=== PATIENT | male | born 1955 | race African-American/Black ===

== ENCOUNTER 2023-12-30 13:01 | Inpatient (IN) | payer MEDICARE, OTHER ==
[~2023-12-30] VITALS: Ht 180.3 cm; Wt 115.7 kg
[2023-12-30] MEDS: IV NS 0.9% 500 ML BAG IV ONE (13:30)
[2023-12-30 14:15] LABS: BASOPHILS % (AUTO) 0.8 % (0.0-2.0); EOSINOPHILS # (AUTO) 0.1 K/uL (0.0-0.7); EOSINOPHILS % (AUTO) 1.9 % (0.0-6.0); HEMATOCRIT 46 % (39-51); HEMOGLOBIN 14.9 g/dL (13.5-17.5); LYMPHOCYTES # (AUTO) 1.2 K/uL (0.8-4.8); LYMPHOCYTES % (AUTO) 27.1 % (20.0-44.0); MEAN CORPUSCULAR HEMOGLOBIN 26 PG (26.0-33.0); MEAN CORPUSCULAR HGB CONC 33 g/dl (31.0-36.0); MEAN CORPUSCULAR VOLUME 80 fL (80-96); MONOCYTES # (AUTO) 0.3 K/uL (0.1-1.30); MONOCYTES % (AUTO) 6.3 % (2.0-12.0); NEUTROPHILS # (AUTO) 2.9 K/uL (1.8-8.9); NEUTROPHILS % (AUTO) 63.9 % (43.0-81.0); PLATELET COUNT (AUTO) 225 K/uL (150-450); RED BLOOD CELL COUNT(AUTO) 5.74 MIL/uL (4.5-6.0); RED CELL DISTRIBUTION WIDTH 17.5 % (11.5-15.0); WHITE BLOOD COUNT (AUTO) 4.6 K/uL (4.3-11.0)
[2023-12-30 14:23] LABS: APPEARANCE,URINE Clear (CLEAR); BILIRUBIN,URINE Negative (NEGATIVE); BLOOD, URINE Trace-intact Ery/uL (NEGATIVE); COLOR,URINE YELLOW (YELLOW); KETONES,URINE Negative (NEGATIVE); LEUKOCYTE ESTERASE ,URINE Negative (NEGATIVE); NITRITE, URINE Negative (NEGATIVE); PROTEIN,URINE Negative (NEGATIVE); UGLUCOSE Negative (NEGATIVE); UROBILINOGEN,URINE 0.2 EU/dL (0.2)
[2023-12-30 14:33] LABS: ADD URINE CULTURE NO; BACTERIA,URINE None seen /HPF (None Seen); RBC,URINE 0-2 /HPF (0-2); SQUAMOUS EPITHELIAL CELL,UR None Seen /HPF (None Seen); WBC,URINE NONE SEEN /HPF (0-3)
[2023-12-30] MEDS ORDERED: BENZ1TAB7 PO (15:06)
[2023-12-30] MEDS ORDERED: ATOR40TA PO (15:06)
[2023-12-30] MEDS ORDERED: MAGN400O6 PO (15:06)
[2023-12-30] MEDS ORDERED: ACET325T53 PO (15:06)
[2023-12-30] MEDS ORDERED: OLAN15TA6 PO (15:06)
[2023-12-30] MEDS ORDERED: POLY15DR31 EACHEYE (15:06)
[2023-12-30] MEDS ORDERED: OLAN10TA6 PO (15:06)
[2023-12-30 15:13] LABS: CALCIUM, SERUM 8.9 mg/dL (8.5-10.1); CARBON DIOXIDE 25 mmol/L (21-32); CHLORIDE 101 mmol/L (98-107); CREATININE 0.8 mg/dL (0.6-1.3); GLUCOSE 127 mg/dL (74-106); POTASSIUM 3.7 mmol/L (3.5-5.1); SODIUM SERUM 136 mmol/L (136-145); UREA NITROGEN, BLOOD 7 mg/dL (7-18)
[2023-12-30 15:21] LABS: ALANINE AMINOTRANSFERASE 24 U/L (12-78); ALBUMIN 3.4 g/dL (3.4-5.0); ALKALINE PHOSPHATASE 116 U/L (46-116); ASPARTATE AMINOTRANSFERASE 30 U/L (15-37); BILIRUBIN,DIRECT 0.2 mg/dL (0.0-0.2); BILIRUBIN,TOTAL 0.7 mg/dL (0.2-1.0); TOTAL PROTEIN, SERUM 7.1 g/dL (6.4-8.2)
[2023-12-30] MEDS ORDERED: MAGNESIUM HYDROXIDE 30 ML UDC PO PRN ×3 (16:30→19:19)
[2023-12-30] MEDS ORDERED: Z GUARD REMEDY 4 OZ OINT TP PRN (16:30)
[2023-12-30] MEDS ORDERED: POLYVINYL ALCOHOL 15 ML BOTTLE EACHEYE PRN (16:30)
[2023-12-30] MEDS ORDERED: ONDANSETRON HCL/PF 4 MG/2 ML VIAL IVP PRN (16:30)
[2023-12-30] MEDS ORDERED: ACETAMINOPHEN 325 MG TABLET PO PRN ×2 (16:30)
[2023-12-30] MEDS ORDERED: MAG HYDROX/AL HYDROX/SIMETH 30 ML UDC PO PRN (16:30)
[2023-12-30 20:00] VITALS: BP 123/81; TEMP 98.6; O2SAT 100
[2023-12-30] MEDS: IV D5/0.45 NACL 1,000 ML IV PRN (22:21)
[2023-12-30] MEDS: ATORVASTATIN 40 MG TABLET PO SCH (22:33)
[2023-12-30] MEDS: OLANZAPINE ZYDIS 5 MG TAB.RAPDIS PO SCH (22:33)
[2023-12-31 06:44] LABS: BASOPHILS % (AUTO) 0.6 % (0.0-2.0); EOSINOPHILS # (AUTO) 0.1 K/uL (0.0-0.7); EOSINOPHILS % (AUTO) 1.8 % (0.0-6.0); HEMATOCRIT 46 % (39-51); HEMOGLOBIN 15.2 g/dL (13.5-17.5); LYMPHOCYTES # (AUTO) 1.3 K/uL (0.8-4.8); LYMPHOCYTES % (AUTO) 29.6 % (20.0-44.0); MEAN CORPUSCULAR HEMOGLOBIN 27 PG (26.0-33.0); MEAN CORPUSCULAR HGB CONC 33 g/dl (31.0-36.0); MEAN CORPUSCULAR VOLUME 81 fL (80-96); MONOCYTES # (AUTO) 0.4 K/uL (0.1-1.30); MONOCYTES % (AUTO) 7.8 % (2.0-12.0); NEUTROPHILS # (AUTO) 2.7 K/uL (1.8-8.9); NEUTROPHILS % (AUTO) 60.2 % (43.0-81.0); PLATELET COUNT (AUTO) 200 K/uL (150-450); RED BLOOD CELL COUNT(AUTO) 5.68 MIL/uL (4.5-6.0); RED CELL DISTRIBUTION WIDTH 17.7 % (11.5-15.0); WHITE BLOOD COUNT (AUTO) 4.6 K/uL (4.3-11.0)
[2023-12-31 07:11] LABS: ALBUMIN 3.2 g/dL (3.4-5.0); BILIRUBIN,TOTAL 0.9 mg/dL (0.2-1.0); CALCIUM, SERUM 8.8 mg/dL (8.5-10.1); CREATININE 0.8 mg/dL (0.6-1.3); MAGNESIUM 2.1 mg/dL (1.8-2.4); PHOSPHORUS 3.4 mg/dL (2.5-4.9); POTASSIUM 4.1 mmol/L (3.5-5.1); TOTAL PROTEIN, SERUM 6.9 g/dL (6.4-8.2)
[2023-12-31 07:30] VITALS: BP 140/100; TEMP 98.6; O2SAT 99
[2023-12-31] MEDS: OLANZAPINE ZYDIS 5 MG TAB.RAPDIS PO SCH (08:32)
[2023-12-31] MEDS: BENZTROPINE MESYLATE (1 MG) 1 MG TABLET PO SCH (08:33)
[2023-12-31 16:00] VITALS: BP 136/87; TEMP 98.1; O2SAT 99
[2023-12-31 20:00] VITALS: BP 158/78; TEMP 98.1; O2SAT 98
[2024-01-01 08:11] VITALS: BP 133/86; TEMP 98.2; O2SAT 100
[2024-01-01 15:48] VITALS: BP 138/74; TEMP 98.3; O2SAT 100
[2024-01-01 20:00] VITALS: BP 139/98; TEMP 98.1; O2SAT 99
[2024-01-02 08:32] VITALS: BP 125/85; TEMP 98.4; O2SAT 100
== END 2024-01-02 17:24 | DRG 641 ==
LOC: ER 13:05 → TELE 19:16 → MED 12-31 00:25
PROVIDERS: ADMIT Internal Medicine; ATTEND Internal Medicine
DX: R62.7 Adult failure to thrive (principal); F41.9 Anxiety disorder, unspecified; F32.A Depression, unspecified; E78.5 Hyperlipidemia, unspecified; F25.9 Schizoaffective disorder, unspecified; Z68.35 Body mass index [BMI] 35.0-35.9, adult; G62.9 Polyneuropathy, unspecified; R53.1 Weakness; R52 Pain, unspecified
CPT/HCPCS: 36415; 71045-TC; 80048-TC; 80053-TC; 80076-TC; 81001; 82962-TC; 83735-TC; 84100-TC; 84443-TC; 84484-TC; 85025-TC; 87081-TC; A4223; G0378; J3490; J7030

== ENCOUNTER 2024-07-11 16:14 | Inpatient (IN) | payer MEDICARE, OTHER ==
[~2024-07-11] VITALS: Ht 188 cm; Wt 113.4 kg
[~2024-07-11 16:14] MED LIST: ACET325T53 PO; ATOR40TA PO; BENZ1TAB7 PO; MAGN400O6 PO; OLAN10TA6 PO; OLAN15TA6 PO; POLY15DR31 EACHEYE
[2024-07-11] MEDS ORDERED: RISP3TAB5 PO (16:51)
[2024-07-11 17:08] LABS: BASOPHILS # (AUTO) 0.1 K/uL (0.0-0.2); BASOPHILS % (AUTO) 1.3 % (0.0-2.0); EOSINOPHILS # (AUTO) 0.1 K/uL (0.0-0.7); EOSINOPHILS % (AUTO) 1.8 % (0.0-6.0); HEMATOCRIT 46 % (39-51); HEMOGLOBIN 14.9 g/dL (13.5-17.5); LYMPHOCYTES # (AUTO) 1.5 K/uL (0.8-4.8); LYMPHOCYTES % (AUTO) 34.5 % (20.0-44.0); MEAN CORPUSCULAR HEMOGLOBIN 27 PG (26.0-33.0); MEAN CORPUSCULAR HGB CONC 33 g/dl (31.0-36.0); MEAN CORPUSCULAR VOLUME 81 fL (80-96); MONOCYTES # (AUTO) 0.4 K/uL (0.1-1.30); MONOCYTES % (AUTO) 9.4 % (2.0-12.0); NEUTROPHILS # (AUTO) 2.2 K/uL (1.8-8.9); PLATELET COUNT (AUTO) 217 K/uL (150-450); RED BLOOD CELL COUNT(AUTO) 5.64 MIL/uL (4.5-6.0); RED CELL DISTRIBUTION WIDTH 15.7 % (11.5-15.0); WHITE BLOOD COUNT (AUTO) 4.2 K/uL (4.3-11.0)
[2024-07-11 17:18] LABS: CALCIUM, SERUM 8.8 mg/dL (8.5-10.1); CARBON DIOXIDE 27 mmol/L (21-32); CHLORIDE 104 mmol/L (98-107); CREATININE 0.8 mg/dL (0.6-1.3); GLUCOSE 92 mg/dL (74-106); POTASSIUM 4.1 mmol/L (3.5-5.1); SODIUM SERUM 137 mmol/L (136-145); UREA NITROGEN, BLOOD 7 mg/dL (7-18)
[2024-07-11 18:20] VITALS: BP 130/80; TEMP 97.7
[2024-07-11] MEDS ORDERED: MAGNESIUM HYDROXIDE 30 ML UDC PO PRN (19:30)
[2024-07-11] MEDS ORDERED: MAG HYDROX/AL HYDROX/SIMETH 30 ML UDC PO PRN (19:30)
[2024-07-11] MEDS ORDERED: ONDANSETRON HCL/PF 4 MG/2 ML VIAL IVP PRN (19:30)
[2024-07-11] MEDS ORDERED: ACETAMINOPHEN 325 MG TABLET PO PRN (19:30)
[2024-07-11] MEDS ORDERED: Z GUARD REMEDY 4 OZ OINT TP PRN (19:30)
[2024-07-11 20:25] VITALS: BP 118/87; TEMP 97.7; O2SAT 99
[2024-07-11] MEDS: ENOXAPARIN SODIUM 40 MG/0.4 ML DISP.SYRIN SQ SCH (21:34)
[2024-07-11] MEDS: ZOLPIDEM TARTRATE 5 MG TABLET PO PRN (23:21)
[2024-07-12 06:39] LABS: BASOPHILS % (AUTO) 0.9 % (0.0-2.0); EOSINOPHILS % (AUTO) 1.3 % (0.0-6.0); HEMATOCRIT 45 % (39-51); HEMOGLOBIN 14.9 g/dL (13.5-17.5); LYMPHOCYTES # (AUTO) 1.2 K/uL (0.8-4.8); LYMPHOCYTES % (AUTO) 31.6 % (20.0-44.0); MEAN CORPUSCULAR HEMOGLOBIN 27 PG (26.0-33.0); MEAN CORPUSCULAR HGB CONC 33 g/dl (31.0-36.0); MEAN CORPUSCULAR VOLUME 82 fL (80-96); MONOCYTES # (AUTO) 0.4 K/uL (0.1-1.30); MONOCYTES % (AUTO) 9.7 % (2.0-12.0); NEUTROPHILS # (AUTO) 2.1 K/uL (1.8-8.9); NEUTROPHILS % (AUTO) 56.5 % (43.0-81.0); PLATELET COUNT (AUTO) 202 K/uL (150-450); RED BLOOD CELL COUNT(AUTO) 5.55 MIL/uL (4.5-6.0); RED CELL DISTRIBUTION WIDTH 15.9 % (11.5-15.0); WHITE BLOOD COUNT (AUTO) 3.7 K/uL (4.3-11.0)
[2024-07-12 07:10] LABS: CALCIUM, SERUM 8.4 mg/dL (8.5-10.1); CREATININE 0.8 mg/dL (0.6-1.3); PHOSPHORUS 3.6 mg/dL (2.5-4.9); POTASSIUM 4.3 mmol/L (3.5-5.1)
[2024-07-12 07:30] VITALS: BP 134/96; TEMP 97.9; O2SAT 97
[2024-07-12 07:30] LABS: THYROID STIMULATING HORMONE 1.21 uIU/mL (0.358-3.74)
[2024-07-12] MEDS: PANTOPRAZOLE 40 MG TABLET.DR PO SCH (08:35)
[2024-07-12] MEDS ORDERED: POLYVINYL ALCOHOL 15 ML BOTTLE EACHEYE PRN (12:00)
[2024-07-12] MEDS ORDERED: MAGNESIUM HYDROXIDE 30 ML UDC PO PRN (12:00)
[2024-07-12] MEDS: risperiDONE 1 MG TABLET PO SCH (12:10)
[2024-07-12 16:00] VITALS: BP 117/76; TEMP 97.7; O2SAT 99
[2024-07-12 20:00] VITALS: BP 104/67; TEMP 98.2; O2SAT 96
[2024-07-12] MEDS: ATORVASTATIN 40 MG TABLET PO SCH (22:11)
[2024-07-13 08:00] VITALS: BP 134/83; TEMP 98.2; O2SAT 98
[2024-07-13] MEDS: BENZTROPINE MESYLATE (1 MG) 1 MG TABLET PO SCH (08:49)
[2024-07-13 16:00] VITALS: BP 116/70; TEMP 98.1; O2SAT 96
[2024-07-13 20:00] VITALS: BP_SYST 131; BP_DIAS 74; BP_DIAS 84; TEMP 98.1; O2SAT 99
[2024-07-14 08:00] VITALS: BP 120/75; TEMP 98.6; O2SAT 99
== END 2024-07-14 16:55 | DRG 641 ==
LOC: ER 16:21 → MED 17:37
PROVIDERS: ADMIT Student in an Organized Health Care Education/Training Program; ATTEND Internal Medicine
DX: R62.7 Adult failure to thrive (principal); E87.1 Hypo-osmolality and hyponatremia; F41.9 Anxiety disorder, unspecified; F32.A Depression, unspecified; F25.9 Schizoaffective disorder, unspecified; Z68.32 Body mass index [BMI] 32.0-32.9, adult; E78.5 Hyperlipidemia, unspecified; E86.1 Hypovolemia; G89.29 Other chronic pain
CPT/HCPCS: 36415; 71045-TC; 80048-TC; 83735-TC; 84100-TC; 84443-TC; 84484-TC; 85025-TC; G0378; J1650

== ENCOUNTER 2025-02-15 19:50 | Inpatient (IN) | payer MEDICARE, OTHER ==
[~2025-02-15] VITALS: Ht 182.9 cm; Wt 79.4 kg
[~2025-02-15 19:50] MED LIST changes: -OLAN10TA6 PO; -OLAN15TA6 PO; +RISP3TAB5 PO
[2025-02-15 20:33] LABS: BASOPHILS % (AUTO) 0.6 % (0.0-2.0); EOSINOPHILS # (AUTO) 0.1 K/uL (0.0-0.7); EOSINOPHILS % (AUTO) 2.5 % (0.0-6.0); HEMATOCRIT 42 % (39-51); LYMPHOCYTES # (AUTO) 1.7 K/uL (0.8-4.8); MEAN CORPUSCULAR HEMOGLOBIN 27 PG (26.0-33.0); MEAN CORPUSCULAR HGB CONC 33 g/dl (31.0-36.0); MEAN CORPUSCULAR VOLUME 82 fL (80-96); MONOCYTES # (AUTO) 0.4 K/uL (0.1-1.30); MONOCYTES % (AUTO) 10.2 % (2.0-12.0); NEUTROPHILS # (AUTO) 1.6 K/uL (1.8-8.9); NEUTROPHILS % (AUTO) 41.7 % (43.0-81.0); PLATELET COUNT (AUTO) 163 K/uL (150-450); RED BLOOD CELL COUNT(AUTO) 5.16 MIL/uL (4.5-6.0); RED CELL DISTRIBUTION WIDTH 16.3 % (11.5-15.0); WHITE BLOOD COUNT (AUTO) 3.9 K/uL (4.3-11.0)
[2025-02-15 20:38] LABS: APPEARANCE,URINE CLEAR (CLEAR); BILIRUBIN,URINE NEGATIVE (NEGATIVE); BLOOD, URINE NEGATIVE Ery/uL (NEGATIVE); COLOR,URINE YELLOW (YELLOW); KETONES,URINE NEGATIVE (NEGATIVE); LEUKOCYTE ESTERASE ,URINE NEGATIVE (NEGATIVE); NITRITE, URINE NEGATIVE (NEGATIVE); PROTEIN,URINE NEGATIVE (NEGATIVE); UGLUCOSE NEGATIVE (NEGATIVE); UROBILINOGEN,URINE 0.2 EU/dL (0.2)
[2025-02-15 20:49] LABS: CALCIUM, SERUM 8.7 mg/dL (8.5-10.1); CARBON DIOXIDE 31 mmol/L (21-32); CHLORIDE 105 mmol/L (98-107); CREATININE 0.9 mg/dL (0.6-1.3); GLUCOSE 78 mg/dL (74-106); POTASSIUM 3.8 mmol/L (3.5-5.1); SODIUM SERUM 140 mmol/L (136-145); UREA NITROGEN, BLOOD 10 mg/dL (7-18)
[2025-02-15 20:54] LABS: AMPHETAMINE, URINE NEGATIVE (NEGATIVE); BARBITURATE, URINE NEGATIVE (NEGATIVE); BENZODIAZEPINE, URINE NEGATIVE (NEGATIVE); CANNABINOID, URINE NEGATIVE (NEGATIVE); COCCAINE, URINE NEGATIVE (NEGATIVE); OPIATE, URINE NEGATIVE (NEGATIVE); PHENCYCLIDINE SCREEN,URINE NEGATIVE (NEGATIVE)
[2025-02-15 20:56] LABS: ALANINE AMINOTRANSFERASE 33 U/L (12-78); ALBUMIN 3.1 g/dL (3.4-5.0); ALCOHOL, BLOOD < 3 mg/dL (0-10); ALKALINE PHOSPHATASE 131 U/L (46-116); ASPARTATE AMINOTRANSFERASE 26 U/L (15-37); BILIRUBIN,DIRECT 0.1 mg/dL (0.0-0.2); BILIRUBIN,TOTAL 0.6 mg/dL (0.2-1.0); SALICYLATE 3.3 mg/dL (2.8-20.0); TOTAL PROTEIN, SERUM 6.5 g/dL (6.4-8.2)
[2025-02-15 20:57] LABS: ACETAMINOPHEN 0 ug/ml (10-30)
[2025-02-16] MEDS ORDERED: POTA10CA43 PO (00:30)
[2025-02-16] MEDS ORDERED: AMLO-212 PO (00:30)
[2025-02-16] MEDS ORDERED: FURO-145 PO (00:30)
[2025-02-16] MEDS ORDERED: CRAN250C PO (00:30)
[2025-02-16] MEDS ORDERED: DAPA10TA PO (00:30)
[2025-02-16] MEDS ORDERED: ASPI-1169 PO (00:30)
[2025-02-16] MEDS ORDERED: QUET100T PO (00:30)
[2025-02-16] MEDS ORDERED: SACU1TAB7 PO (00:30)
[2025-02-16] MEDS ORDERED: METO50TA16 PO (00:30)
[2025-02-16] MEDS ORDERED: OLAN5TAB3 PO (00:46)
[2025-02-16] MEDS ORDERED: GABA-532 PO (00:46)
[2025-02-16] MEDS ORDERED: MAG HYDROX/AL HYDROX/SIMETH 30 ML UDC PO PRN (01:00)
[2025-02-16] MEDS ORDERED: LORAZEPAM 0.5 MG TABLET PO PRN (01:00)
[2025-02-16] MEDS ORDERED: MAGNESIUM HYDROXIDE 30 ML UDC PO PRN (01:00)
[2025-02-16] MEDS ORDERED: LORAZEPAM 1 MG TABLET PO PRN (01:00)
[2025-02-16] MEDS ORDERED: ZOLPIDEM TARTRATE 5 MG TABLET PO PRN ×2 (01:00)
[2025-02-16 01:40] VITALS: BP 130/79; TEMP 97.5; O2SAT 100
[2025-02-16] MEDS: BLOOD SUGAR DIAGNOSTIC 1 EACH STRIP IN ONE (01:55)
[2025-02-16] MEDS ORDERED: ACET325T53 PO (07:58)
[2025-02-16] MEDS ORDERED: MAG30ORA PO (07:58)
[2025-02-16] MEDS ORDERED: MAGN400O6 PO (07:58)
[2025-02-16] MEDS ORDERED: POLY15DR31 EACHEYE (07:58)
[2025-02-16 08:00] VITALS: BP 117/82; TEMP 98.1; O2SAT 98
[2025-02-16] MEDS ORDERED: POLYVINYL ALCOHOL 15 ML BOTTLE EACHEYE PRN (10:00)
[2025-02-16 16:00] VITALS: BP 140/87; TEMP 97.8; O2SAT 100
[2025-02-16] MEDS: BENZTROPINE MESYLATE (1 MG) 1 MG TABLET PO SCH (16:32)
[2025-02-16] MEDS: GABAPENTIN 100 MG CAPSULE PO SCH (16:32)
[2025-02-16] MEDS: risperiDONE 1 MG TABLET PO SCH (17:00)
[2025-02-16 20:00] VITALS: BP 142/72; TEMP 97.8; O2SAT 100
[2025-02-16 20:42] VITALS: BP 142/72; TEMP 97.8; O2SAT 100
[2025-02-16] MEDS: ATORVASTATIN 40 MG TABLET PO SCH (21:42)
[2025-02-17] MEDS: ACETAMINOPHEN 325 MG TABLET PO PRN (01:55)
[2025-02-17 08:00] VITALS: BP 128/98; TEMP 98; O2SAT 100
[2025-02-17 16:00] VITALS: BP 129/90; TEMP 98; O2SAT 100
[2025-02-17 20:23] VITALS: BP 127/86; TEMP 98; O2SAT 98
[2025-02-18 08:00] VITALS: BP 133/96; TEMP 97.9; O2SAT 99
[2025-02-18 16:00] VITALS: BP 136/85; TEMP 98.1; O2SAT 98
[2025-02-18 21:11] VITALS: BP 119/80; TEMP 98; O2SAT 96
[2025-02-19 08:00] VITALS: BP 114/54; TEMP 97.8; O2SAT 98
[2025-02-19 16:00] VITALS: BP 107/64; TEMP 97.9; O2SAT 99
[2025-02-19 20:54] VITALS: BP 123/68; TEMP 97.8; O2SAT 96
[2025-02-20 08:00] VITALS: BP 105/71; TEMP 98.8; O2SAT 98
[2025-02-20 15:26] VITALS: BP 114/77; TEMP 98.1; O2SAT 99
[2025-02-20 20:18] VITALS: BP 109/61; TEMP 97.8; O2SAT 99
[2025-02-21 08:00] VITALS: BP 98/57; TEMP 97.8; O2SAT 98
[2025-02-21 16:00] VITALS: BP 116/81; TEMP 98.7; O2SAT 97
[2025-02-21 20:01] VITALS: BP 109/75; TEMP 98.5; O2SAT 98
[2025-02-22 08:00] VITALS: BP 105/71; TEMP 98; O2SAT 97
[2025-02-22 16:00] VITALS: BP 128/77; TEMP 98; O2SAT 100
[2025-02-22 20:17] VITALS: BP 108/62; TEMP 98.2; O2SAT 99
[2025-02-23 08:00] VITALS: BP 100/80; TEMP 98.6; O2SAT 100
[2025-02-23] MEDS: GABAPENTIN 300 MG CAPSULE PO SCH (09:00)
[2025-02-23 16:00] VITALS: BP 124/80; TEMP 97.8; O2SAT 98
[2025-02-23 19:55] VITALS: BP 120/85; TEMP 97.7; O2SAT 100
[2025-02-24 08:00] VITALS: BP 107/64; TEMP 98; O2SAT 98
[2025-02-24 16:00] VITALS: BP 119/63; TEMP 98; O2SAT 98
[2025-02-24 20:00] VITALS: BP 137/60; TEMP 98.3; O2SAT 98
[2025-02-25 08:48] VITALS: BP 104/75; TEMP 97.5; O2SAT 96
[2025-02-25 16:31] VITALS: BP 111/82; TEMP 98; O2SAT 98
[2025-02-25 20:10] VITALS: BP 115/77; TEMP 98; O2SAT 98
[2025-02-26 08:00] VITALS: BP 142/79; TEMP 98.1; O2SAT 98
[2025-02-26 16:00] VITALS: BP 138/84; TEMP 98; O2SAT 100
[2025-02-26 20:48] VITALS: BP 136/78; TEMP 98; O2SAT 99
[2025-02-27 08:00] VITALS: BP 118/81; TEMP 98.8; O2SAT 97
[2025-02-27 16:00] VITALS: BP 116/70; TEMP 98.6; O2SAT 100
[2025-02-27 21:40] VITALS: BP 129/69; TEMP 98.4; O2SAT 99
[2025-02-28 08:00] VITALS: BP 116/93; TEMP 98.6; O2SAT 99
[2025-02-28 15:47] VITALS: BP 124/87; TEMP 97.7; O2SAT 98
[2025-02-28 20:25] VITALS: BP 106/65; TEMP 98.6; O2SAT 98
[2025-03-01 08:00] VITALS: BP 121/90; TEMP 98.6; O2SAT 96
[2025-03-01] MEDS: risperiDONE 1 MG TABLET PO SCH (08:27)
== END 2025-03-01 12:25 | DRG 885 ==
LOC: ER 19:52 → GPS 23:35
PROVIDERS: ADMIT Psychiatry & Neurology Psychiatry; ATTEND Internal Medicine
DX: F20.0 Paranoid schizophrenia (principal); F32.A Depression, unspecified; Z79.899 Other long term (current) drug therapy; E78.5 Hyperlipidemia, unspecified; F41.9 Anxiety disorder, unspecified; Z20.822 Contact with and (suspected) exposure to COVID-19; F29 Unspecified psychosis not due to a substance or known physiological condition; G62.9 Polyneuropathy, unspecified
CPT/HCPCS: 36415; 80048-TC; 80076-TC; 82962-TC; 85025-TC; 87081-TC; G0480

== ENCOUNTER 2025-08-29 17:43 | Inpatient (IN) | payer MEDICARE, OTHER ==
[~2025-08-29] VITALS: Ht 182.9 cm; Wt 95.3 kg
[~2025-08-29 17:43] MED LIST changes: +GABA-532 PO; +MAG30ORA PO; +OLAN5TAB3 PO
[2025-08-29] MEDS ORDERED: LORAZEPAM INJ 2 MG/ML VIAL ONE (18:10)
[2025-08-29] MEDS: LORAZEPAM INJ 2 MG/ML VIAL IM ONE (18:19)
[2025-08-29 18:54] LABS: PLATELET COUNT (AUTO) 197 K/uL (150-450); RED BLOOD CELL COUNT(AUTO) 5.53 MIL/uL (4.5-6.0); RED CELL DISTRIBUTION WIDTH 16.1 % (11.5-15.0); WHITE BLOOD COUNT (AUTO) 4.9 K/uL (4.3-11.0)
[2025-08-29] MEDS ORDERED: Z GUARD REMEDY 4 OZ OINT TP PRN (19:00)
[2025-08-29] MEDS ORDERED: MAG HYDROX/AL HYDROX/SIMETH 30 ML UDC PO PRN (19:00)
[2025-08-29] MEDS ORDERED: ACETAMINOPHEN 325 MG TABLET PO PRN ×2 (19:00)
[2025-08-29] MEDS ORDERED: ONDANSETRON HCL/PF 4 MG/2 ML VIAL IVP PRN (19:00)
[2025-08-29] MEDS ORDERED: MAGNESIUM HYDROXIDE 30 ML UDC PO PRN ×2 (19:00)
[2025-08-29 19:01] LABS: CALCIUM, SERUM 8.9 mg/dL (8.5-10.1); CREATININE 0.9 mg/dL (0.6-1.3); SODIUM SERUM 136 mmol/L (136-145); UREA NITROGEN, BLOOD 12 mg/dL (7-18)
[2025-08-29 19:06] LABS: ALCOHOL, BLOOD < 3 mg/dL (0-10); ASPARTATE AMINOTRANSFERASE 18 U/L (15-37); TOTAL PROTEIN, SERUM 7.1 g/dL (6.4-8.2)
[2025-08-29 20:05] VITALS: BP 137/74; TEMP 98.1; O2SAT 98
[2025-08-29 20:11] LABS: AMPHETAMINE, URINE NEGATIVE (NEGATIVE); BARBITURATE, URINE NEGATIVE (NEGATIVE); BENZODIAZEPINE, URINE NEGATIVE (NEGATIVE); CANNABINOID, URINE NEGATIVE (NEGATIVE); COCCAINE, URINE NEGATIVE (NEGATIVE); OPIATE, URINE NEGATIVE (NEGATIVE)
[2025-08-29 20:15] LABS: APPEARANCE,URINE CLEAR (CLEAR); BLOOD, URINE Trace-intact Ery/uL (NEGATIVE); LEUKOCYTE ESTERASE ,URINE Negative (NEGATIVE); NITRITE, URINE NEGATIVE (NEGATIVE); UGLUCOSE Negative (NEGATIVE)
[2025-08-29 20:16] LABS: ADD URINE CULTURE NO; SQUAMOUS EPITHELIAL CELL,UR None Seen /HPF (None Seen)
[2025-08-29] MEDS: IV NS 0.9% 1,000 ML IV SCH (20:24)
[2025-08-29 22:55] VITALS: BP 137/74; TEMP 98.1; O2SAT 98
[2025-08-30 07:00] LABS: PLATELET COUNT (AUTO) 174 K/uL (150-450); RED BLOOD CELL COUNT(AUTO) 5.31 MIL/uL (4.5-6.0); RED CELL DISTRIBUTION WIDTH 16.1 % (11.5-15.0); WHITE BLOOD COUNT (AUTO) 3.7 K/uL (4.3-11.0)
[2025-08-30 07:08] LABS: CALCIUM, SERUM 8.8 mg/dL (8.5-10.1); CREATININE 0.8 mg/dL (0.6-1.3); PHOSPHORUS 3.4 mg/dL (2.5-4.9); SODIUM SERUM 138.0 mmol/L (136-145); UREA NITROGEN, BLOOD 11.0 mg/dL (7-18)
[2025-08-30 08:00] VITALS: BP 124/88; TEMP 98.6; O2SAT 96
[2025-08-30] MEDS: GABAPENTIN 100 MG CAPSULE PO SCH (08:46)
[2025-08-30] MEDS: BENZTROPINE MESYLATE (1 MG) 1 MG TABLET PO SCH (08:47)
[2025-08-30] MEDS ORDERED: ONDANSETRON 4 MG TAB.RAPDIS PO PRN (12:30)
[2025-08-30 15:58] VITALS: BP 147/88; TEMP 98.6; O2SAT 94
[2025-08-30 20:00] VITALS: BP 116/69; TEMP 98.4; O2SAT 95
[2025-08-31 07:00] VITALS: BP 135/100; TEMP 97.5; O2SAT 98
[2025-08-31] MEDS ORDERED: LORAZEPAM 1 MG TABLET PO PRN (12:00)
[2025-08-31 16:00] VITALS: BP 128/92; TEMP 97.5; O2SAT 99
[2025-08-31 20:00] VITALS: BP 116/69; TEMP 97.3; O2SAT 98
[2025-09-01] MEDS: OLANZAPINE 10 MG VIAL IM PRN (04:39)
[2025-09-01 08:00] VITALS: BP 115/69; TEMP 98.2; O2SAT 100
== END 2025-09-01 14:38 | DRG 640 ==
LOC: ER 17:51 → MED 19:21
PROVIDERS: ADMIT Internal Medicine; ATTEND Internal Medicine
DX: E86.0 Dehydration (principal); G93.41 Metabolic encephalopathy; F20.0 Paranoid schizophrenia; E78.5 Hyperlipidemia, unspecified; G62.9 Polyneuropathy, unspecified; Z79.899 Other long term (current) drug therapy; Z20.822 Contact with and (suspected) exposure to COVID-19; R53.1 Weakness; F29 Unspecified psychosis not due to a substance or known physiological condition
CPT/HCPCS: 36415; 70450-TC; 71045-TC; 80048-TC; 80076-TC; 81001; 83735-TC; 84100-TC; 84484-TC; 85025-TC; 87081-TC; A4223; G0378; G0480; J1200; J2060; J3490; J7030